=== PATIENT | female | born 1985 | race African-American/Black ===

== ENCOUNTER 2016-10-02 10:03 | Emergency (ER) | payer OTHER ==
[~2016-10-02] VITALS: Ht 157.5 cm; Wt 62.0 kg
[~2016-10-02 10:03] MED LIST: AMOXMIS3 PO
[2016-10-02 10:16] VITALS: TEMP 36.7; Ht 157.5 cm; Wt 62.0 kg
[2016-10-02] MEDS ORDERED: AMOX1TAB43 PO (10:28)
[2016-10-02 12:06] LABS: BASO % 0.3 %; BASO ABS # 0.02 K/uL (0-0.2); COMPLETE YES; EOS % 1.5 %; HEMATOCRIT 34.5 % (37-47); IG% 0.2 %; LYMPH % 29.2 %; LYMPH ABS # 1.72 K/uL (1.2-3.4); MEAN CELL VOLUME 82.9 fL (80-100); MEAN CORPUSCULAR HEMOGLOBIN 28.4 pg (25-34); MEAN CORPUSCULAR HGB CONC 34.2 g/dl (32-36); MEAN PLATELET VOLUME 9.9 fL (7.4-10.4); MONO % 3.2 %; NEUT % 65.6 %; PLATELET COUNT 257 K/uL (130-400); RED BLOOD COUNT 4.16 M/uL (4.2-5.4)
[2016-10-02 12:25] LABS: BUN/CREATININE RATIO 14.8 (10-20); CALCIUM 9.1 mg/dl (8.5-10.1); CREATININE 0.63 mg/dl (0.60-1.20); POTASSIUM 3.7 mmol/L (3.5-5.1)
--- NOTE | 2016-10-02 12:59 | DIAGNOSTIC IMAGING REPORT ---
LEFT BREAST LIMITED UNILATERAL ULTRASOUND CLINICAL HISTORY: Left breast swelling and pain. COMPARISON STUDY: None. FINDINGS: There is a 1.7 x 1.2 x 1.2 cm slightly complex septated fluid collection within the subareolar location of the left breast. IMPRESSION: A 1.7 x 1.2 x 1.2 cm slightly complex septated fluid collection within the left subareolar breast. This contains a thin septation. This favors a complicated cyst or dilated duct. A mass or abscess is considered less likely but not entirely excluded. Definitive characterization is recommended at a dedicated breast Center. Electronically signed by: Antione Chirinos M.D. 10/02/2016 12:58 PM
[2016-10-02 13:01] VITALS: BP 114/76; PULSE 71; O2SAT 100
--- NOTE | 2016-10-02 17:21 | EMERGENCY ROOM VISIT NOTE ---
History Report prepared by Josy: Rosa Jaeger Under the Supervision of: Dr. Vladislav Weathers D.O. First contact with patient: 10:26 Chief Complaint: OTHER COMPLAINT Stated Complaint: LEFT BREAST IS SWOLLEN/PAINFUL-LUMP GETTING WORSE History of Present Illness The patient is a 31 year old female who presents to the Emergency Room with complaints of increased pain to her left breast over the past 5 days. Currently , she rates her discomfort as a 5/10, which worsens to palpation of the area. At the time of onset, the patient noticed a small, painful lump in her left breast. She did visit her PCP for her symptoms, and was placed on antibiotics, but since that time, her pain has become generalized around her entire breast, especially the nipple, and it now feels rigid. Patient does have an appointment scheduled for an ultrasound and a mammogram next week, but as her pain worsened , she came to the ED for further evaluation. Patient notes that she did recently get over a cold, but she denies headache, change in vision, fevers, chest pain, shortness of breath, nausea, vomiting, diarrhea, pain with urination , and melena. Source of History: patient Onset: 6 days ship's captain Position: other (left breast) Symptom Intensity: Timing: worsening Modifying Factors (Worsening): other (palpation) Associated Symptoms: No SOB, No abdominal pain, No chest pain, No fevers, No melena, No nausea, No urinary symptoms, No vomiting Review of Systems See HPI for pertinent positives & negatives. A total of 10 systems reviewed and were otherwise negative. Past Medical & Surgical Medical Problems: (1) Asthma Surgical Problems: (1) H/O craniotomy Family History Diabetes mellitus FH: HTN (hypertension) FHx: heart disease Social History Smoking Status: Never Smoker Marital Status: single Occupation Status: [employer] student Current/Historical Medications Scheduled Amoxicillin & Pot Clavulanate (Amoxicillin/Clavulanate P), 1 TAB PO BID Allergies Coded Allergies: No Known Allergies (Unverified , 11/27/14) Physical Exam Vital Signs Date Time Temp Pulse Resp B/P Pulse Ox O2 Delivery O2 Flow Rate FiO2 10/02/16 13:01 71 16 114/76 100 Room Air 10/02/16 10:16 36.7 86 16 118/75 100 Room Air Physical Exam GENERAL: Sitting up in bed, no acute distress, non-toxic EYE EXAM: normal conjunctiva. OROPHARYNX: no exudate, no erythema, lips, buccal mucosa, and tongue normal and mucous membranes are moist NECK: supple, no nuchal rigidity, no adenopathy, non-tender LUNGS: Clear to auscultation. Normal chest wall mechanics HEART: no murmurs, S1 normal and S2 normal CHEST: Left breast with tenderness just superior to the nipple from 11-3 o' clock with small underlying mass. No surrounding erythema or induration. No lymph nodes within the axilla. No drift or finger to nose. ABDOMEN: abdomen soft, non-tender, normo-active bowel sounds, no masses, no rebound or guarding. BACK: Back is symmetrical on inspection and there is no deformity, no midline tenderness, no CVA tenderness. SKIN: no rashes and no bruising UPPER EXTREMITIES: upper extremities are grossly normal. LOWER EXTREMITIES: No pitting edema. NEURO EXAM: Normal sensorium, cranial nerves II-XII grossly intact, normal speech, no gross weakness of arms, no gross weakness of legs. Medical Decision & Procedures ER Provider Diagnostic Interpretation: US:Per my review, radiologist interpretation. LEFT BREAST LIMITED UNILATERAL ULTRASOUND CLINICAL HISTORY: Left breast swelling and pain. COMPARISON STUDY: None. FINDINGS: There is a 1.7 x 1.2 x 1.2 cm slightly complex septated fluid collection within the subareolar location of the left breast. IMPRESSION: A 1.7 x 1.2 x 1.2 cm slightly complex septated fluid collection within the left subareolar breast. This contains a thin septation. This favors a complicated cyst or dilated duct. A mass or abscess is considered less likely but not entirely excluded. Definitive characterization is recommended at a dedicated breast Center. Electronically signed by: Antione Chirinos M.D. 10/02/2016 12:58 PM Laboratory Results 10/02/16 11:54 Red Blood Count 4.16, Mean Corpuscular Volume 82.9, Mean Corpuscular Hemoglobin 28.4, Mean Corpuscular Hemoglobin Concent 34.2, Mean Platelet Volume 9.9, Neutrophils (%) (Auto) 65.6, Lymphocytes (%) (Auto) 29.2, Monocytes (%) (Auto) 3.2, Eosinophils (%) (Auto) 1.5, Basophils (%) (Auto) 0.3, Neutrophils # (Auto) 3.87, Lymphocytes # (Auto) 1.72, Monocytes # (Auto) 0.19, Eosinophils # (Auto) 0.09, Basophils # (Auto) 0.02 10/02/16 11:54 Test 10/02/16 11:54 White Blood Count 5.90 K/uL (4.8-10.8) Red Blood Count 4.16 M/uL (4.2-5.4) Hemoglobin 11.8 g/dL (12.0-16.0) Hematocrit 34.5 % (37-47) Mean Corpuscular Volume 82.9 fL (80-100) Mean Corpuscular Hemoglobin 28.4 pg (25-34) Mean Corpuscular Hemoglobin Concent 34.2 g/dl (32-36) Platelet Count 257 K/uL (130-400) Mean Platelet Volume 9.9 fL (7.4-10.4) Neutrophils (%) (Auto) 65.6 % Lymphocytes (%) (Auto) 29.2 % Monocytes (%) (Auto) 3.2 % Eosinophils (%) (Auto) 1.5 % Basophils (%) (Auto) 0.3 % Neutrophils # (Auto) 3.87 K/uL (1.4-6.5) Lymphocytes # (Auto) 1.72 K/uL (1.2-3.4) Monocytes # (Auto) 0.19 K/uL (0.11-0.59) Eosinophils # (Auto) 0.09 K/uL (0-0.5) Basophils # (Auto) 0.02 K/uL (0-0.2) RDW Standard Deviation 38.9 fL (36.4-46.3) RDW Coefficient of Variation 12.9 % (11.5-14.5) Immature Granulocyte % (Auto) 0.2 % Immature Granulocyte # (Auto) 0.01 K/uL (0.00-0.02) Anion Gap 10.0 mmol/L (3-11) Est Creatinine Clear Calc Drug Dose 113.1 ml/min Estimated GFR () 139.5 Estimated GFR (Non- 120.4 BUN/Creatinine Ratio 14.8 (10-20) Calcium Level 9.1 mg/dl (8.5-10.1) Laboratory results per my review. ED Course ED COURSE: Vital signs were reviewed and showed normalcy. The patients medical record was reviewed The above diagnostic studies were performed and reviewed. ED treatments and interventions as stated above. 1027: The patient was evaluated in room B11. A complete history and physical examination was performed. 1230: Upon reevaluation, the patient was doing well. She will go to [facility] for further studies. 1325: Patient was reevaluated at this time and was resting comfortably. I updated her on the results of her radiology reports and lab tests. Discharge instructions were also discussed at this time. She verbalized her understanding and agreement with the treatment plan, and she is now ready for disposition. Based on the patients age, coexisting illnesses, exam and lab findings the decision to treat as an outpatient was made. The patient remained stable while under my care. The patient appeared well at the time of discharge. Medical Decision Differential diagnosis includes etiologies such as cancer, cyst, cellulitis, abscess, MRSA infection, DVT, necrotizing fasciitis, dermatitis, drug eruption, as well as others were entertained. Patient is a 31-year-old female who presents the ER for left breast pain and possible mass. She notes that she is follow-up with her primary care doctor and currently has a mammogram and old shunt scheduled for next Thursday. Pain has been getting worse. On exam she does have a small mass from 11 to 3:00 just above her left nipple. No erythema or induration. All sounds shows a likely cyst. Patient was updated regards these findings. Labs show no sniffing a leukocytosis or anemia. BMP was unremarkable. Patient was updated bedside discharged follow-up with her PCP and the breast clinic. Discussed with Pt concerning signs and symptoms to watch out for. Pt was instructed to follow up with their PCP and discussed with the patient their option to return to the ED at anytime for persistent or worsening symptoms. The appropriate anticipatory guidance and out-patient management, including indications for return to the emergency department, were explained at length to the patient and understood. Impression Primary Impression: Cyst of left breast Scribe Attestation The scribe's documentation has been prepared under my direction and personally reviewed by me in its entirety. I confirm that the note above accurately reflects all work, treatment, procedures, and medical decision making performed by me. Departure Information Dispostion Home / Self-Care Referrals Westley Ahmadi D.O. (PCP) Forms HOME CARE DOCUMENTATION FORM, IMPORTANT VISIT INFORMATION, WORK / SCHOOL INSTRUCTIONS Patient Instructions A Signature Page, My [employer] Additional Instructions Please follow up with your primary care doctor with in the next 24 hours. Any worsening of your symptoms, please return to the ED immediately. This includes any redness around the breast, increased swelling, worsening pain, obvious discharge, fevers greater than 100.4 or any other concerning signs or symptoms from your standpoint. You were found to have a 1.7-1.2 cm slightly complex septated fluid collection within the left breast. This should be followed up on with your primary care doctor within the next week. Please take Motrin Tylenol as need for pain.
== END 2016-10-02 13:29 | disposition home or self-care (01) ==
LOC: C.EDB 10:09
DX: N60.02 Solitary cyst of left breast (principal); J45.909 Unspecified asthma, uncomplicated